=== PATIENT | male | born 1995 | race Caucasian/White ===

== ENCOUNTER 2016-10-08 14:28 | Emergency (ER) | payer OTHER ==
[~2016-10-08 14:28] MED LIST: ALBUTEROL MININEB NEB; ALBUTEROL17 GM; ALBUTEROL17 GM INH; CONCERTA; MOTRIN600 MG PO; NO MEDICATIONS; PREDNISONE PO; ROBITUSSIN COU237 ML PO; TAMIFLU75 M1 PO; TAMIFLU75 MG PO; ZITHROMAX PO
[2016-10-08 14:57] LABS: INFLUENZA A NEG (NEG); INFLUENZA B NEG (NEG)
== END 2016-10-08 15:23 | disposition home or self-care (01) ==
LOC: SED 14:28
PROVIDERS: Nurse Practitioner
DX: B34.9 Viral infection, unspecified (principal); J45.909 Unspecified asthma, uncomplicated; F32.9 Major depressive disorder, single episode, unspecified
CPT/HCPCS: 87651; 87804; 99283